=== PATIENT | female | born 1975 | race Caucasian/White ===

== ENCOUNTER 2017-02-24 16:08 | Emergency (ER) | payer OTHER ==
--- NOTE | ~2017-02-24 | CR63 ---
[facility]. [facility] A Service of [facility] & [facility] RADIOLOGY TEXT RESULTS PATIENT: NILSA SAUER LOCATION: SED : 73 UNIT #: [id number] AGE: [address]: Sridhar Walton MD SEX: F ORDER DR: [id number] [place] [id number] E MR#: [id number] Acc #: [id number] NAME: NILSA SAUER. : 1975 SEX: F STUDY DATE/TIME: 02/24/2017 15:10 UNIT: SED ROOM: STUDY DESCRIPTION: CR Chest 2 View Attending Physician: Sridhar Walton M.D. Ordering Physician: Sridhar Walton M.D. MEDICAL IMAGING REPORT This report is preliminary unless electronic signature is present. EXAM Chest 02/24/2017 HISTORY 41-year-old woman, short of air, dizziness, nausea, shaky, abdominal cramps, vomiting, right flank pain. COMPARISON None. FINDINGS Two-view chest demonstrates normal cardiac size and configuration. Hilar structures and mediastinal contours are preserved. Bilateral lungs are clear. Costophrenic angles are clear. IMPRESSION Negative chest. Dictated by... Scooter Charles M.D. THIS IS AN ELECTRONICALLY VERIFIED REPORT Scooter Charles M.D. at 02/25/2017 8:27 AM Rashida TD: 02/24/2017 16:39 JOB #: [id number] MEDICAL IMAGING REPORT Page 1 of 1
--- NOTE | ~2017-02-24 | EKG ---
PATIENT: NILSA SAUER UNIT #: [id number] Ventricular Rate: 121 BPM Atrial Rate: 121 BPM P-R Interval: 120 ms QRS Duration: 76 ms Q-T Interval: 290 ms QTC Calculation(Bezet): 411 ms P Marcy: 25 degrees Calculated R Marcy: 20 degrees Calculated T Marcy: 26 degrees Diagnosis Line: Sinus tachycardia Diagnosis Line: Otherwise normal ECG Diagnosis Line: Diagnosis Line: Confirmed by ANAHY CURTIS MD ([id number]) on 03/03/2017 Diagnosis Line: 11:53:35 AM INTERPRETING MD: KIRSTEN JUNIOR
[2017-02-24 14:40] LABS: URINE SOURCE CLEAN CATCH
[2017-02-24 14:43] LABS: URINE APPEARANCE CLOUDY; URINE BILIRUBIN NEG (NEG); URINE BLOOD 3+ (NEG); URINE COLOR YELLOW; URINE GLUCOSE NEG (NORM); URINE KETONE NEG (NEG); URINE LEUKOCYTE ESTERASE 3+ (NEG); URINE NITRATE POS (NEG); URINE PH 5.5 (5-8); URINE PROTEIN 2+ (NEG); URINE SPECIFIC GRAVITY 1.025 (1.003-1.035)
[2017-02-24 14:49] LABS: MICRO INDICATED? YES
[2017-02-24 14:58] LABS: CULTURE INDICATED? YES; URINE BACTERIA 3+ (NEG); URINE WBC 100-200 /[HPF] (0-5)
[2017-02-24 14:59] LABS: URINE RBC 50-100 /[HPF] (0-2); URINE SQUAMOUS EPITHELIAL CELL FEW /[HPF]
[2017-02-24 15:10] LABS: BASOPHIL# 0.1 X10e3 (0-0.3); BASOPHIL% 0.4 % (0-2.5); EOSINOPHIL% 0.2 % (0.0-7.0); HEMATOCRIT 37.1 % (35.0-45.0); HEMOGLOBIN 12.5 gm/dL (12.0-16.0); LYMPHOCYTE# 1.6 X10e3 (1.0-3.5); LYMPHOCYTE% 11.9 % (17.0-45.0); MEAN CELL VOLUME 90.6 FL (83-96); MEAN CORPUSCULAR HEMOGLOBIN 30.5 PG (28-34); MEAN CORPUSCULAR HGB CONC 33.7 g/dL (30-36); MEAN PLATELET VOLUME 8.9 FL (6.5-11.5); MONOCYTE# 0.4 X10e3 (0-1.0); MONOCYTE% 3.1 % (3.0-12.0); NEUTROPHIL# 11.1 X10e3 (1.5-7.1); NEUTROPHIL% 84.4 % (40-75); PLATELET COUNT 265 X10e3 (140-420); RED BLOOD COUNT 4.09 X10e (3.90-5.30); RED CELL DISTRIBUTION WIDTH 12.7 % (11.0-15.5); WHITE BLOOD COUNT 13.2 X10e3 (4.0-10.5)
[2017-02-24 15:11] LABS: DIFF IND NO
[2017-02-24 15:28] LABS: ALBUMIN SERUM 3.8 g/dL (3.5-5.0); BILIRUBIN, DIRECT 0.1 mg/dL (0.0-0.2); BILIRUBIN,INDIRECT 0.5 mg/dL (0.0-0.9); BILIRUBIN,TOTAL 0.6 mg/dL (0.2-2.0); BUN/CREATININE RATIO 12.5; CALCIUM SERUM 9.3 mg/dL (8.4-10.2); CREATININE SERUM 0.8 mg/dL (0.6-1.4); POTASSIUM 3.9 mmol/L (3.5-5.1); PROTEIN TOTAL SERUM 7.9 g/dL (6.0-8.3)
[2017-02-24 15:28] LABS: POC - CKMB 1.1 ng/mL (0.0-7.9); POC - TROPONIN <0.05 ng/mL (<=0.05)
[2017-02-24 15:31] LABS: INR 1.2; PROTHROMBIN TIME (PATIENT) 13.3 SECONDS (9.5-12.4)
[~2017-02-24 16:08] MED LIST: FOLIC ACID; PRENATAL VITAM1 EAC1
== END 2017-02-24 23:08 ==
LOC: SED 16:08
PROVIDERS: Emergency Medicine
DX: O99.89 Other specified diseases and conditions complicating pregnancy, childbirth and the puerperium (principal); R06.02 Shortness of breath; R10.9 Unspecified abdominal pain; R00.0 Tachycardia, unspecified; Z3A.10 10 weeks gestation of pregnancy
CPT/HCPCS: 36415; 71020; 80048; 80076; 81003; 82553; 83605; 83880; 84484; 85025; 85610; 87040; 87077; 87086; 87088; 87186; 93005; 96360; 96361; 96365; 96366; 96372; 99284; 99291; J0696; J2550; J3370